=== PATIENT | male | born 1945 | race Caucasian/White ===

== ENCOUNTER 2023-11-25 17:03 | Emergency (ER) | payer OTHER ==
[~2023-11-25] VITALS: Ht 167.6 cm; Wt 54.4 kg
[2023-11-25 17:05] VITALS: BP 127/86; PULSE 106; RESP 16; TEMP 99.2; O2SAT 94
[2023-11-25 18:01] VITALS: BP 122/84; PULSE 106; RESP 17; TEMP 98.8; O2SAT 94
[2023-11-25] MEDS ORDERED: DIPH25TA53 PO ×2 (18:28→18:39)
[2023-11-25] MEDS ORDERED: PRED50TA2 PO ×2 (18:28→18:39)
== END 2023-11-25 19:02 | disposition home or self-care (01) ==
LOC: MED 17:03
DX: R22.0 Localized swelling, mass and lump, head (principal); R22.33 Localized swelling, mass and lump, upper limb, bilateral; T50.995A Adverse effect of other drugs, medicaments and biological substances, initial encounter; I12.0 Hypertensive chronic kidney disease with stage 5 chronic kidney disease or end stage renal disease; N18.6 End stage renal disease; Z99.2 Dependence on renal dialysis; Z86.73 Personal history of transient ischemic attack (TIA), and cerebral infarction without residual deficits; Z98.890 Other specified postprocedural states; Z88.0 Allergy status to penicillin; Y92.89 Other specified places as the place of occurrence of the external cause
CPT/HCPCS: 99283